=== PATIENT | female | born 1955 | race Caucasian/White ===

== ENCOUNTER → 2018-07-18 01:03 | Outpatient (CLI) | payer BC, SELFPAY ==
--- NOTE | 2018-07-18 10:08 | DI.REPORT_ITS ---
SYMPTOMS/DIAGNOSIS: PHLEBITIS, I80.9 RIGHT LOWER EXTREMITY ULTRASOUND: No priors for comparison. The deep veins of the right lower extremity show normal compression, augmentation and color flow. No evidence of a deep venous thrombus is identified. There is nonocclusive thrombus seen in a superficial vein in the right lower extremity. IMPRESSION: 1. No evidence of a right lower extremity deep venous thrombus. 2. Superficial thrombophlebitis.
== END ==
PROVIDERS: Visit Provider Internal Medicine
DX: I80.01 Phlebitis and thrombophlebitis of superficial vessels of right lower extremity (principal)
CPT/HCPCS: 93971

== ENCOUNTER 2019-04-10 00:59 | Outpatient (CLI) | payer BC, SELFPAY ==
--- NOTE | 2019-04-10 08:30 | ETT_ITS ---
*[facility]* *[facility]* [address] [place] [address] Stress Electrocardiography Dayo protocol Date of study: 04/10/2019 *PATIENT PRESENTATION* Height: 175.3cm (69in) Blood Pressure: Weight: 60.5kg (133lb) BSA: 1.71m^2 Referring physician: Keyshawn Randle Ordering physician: Keyshawn Randle Impressions: - Indeterminate stress test due to inadequate heart rate. - Treadmill not functioning normally. Unable to achieve adequate stress conditions. Rec repeat ETT if clinical suspicion warrants. Summary: 1. Stress ECG conclusions: The stress ECG is non-diagnostic. 2. Stress: The target heart rate was not achieved. Indication: R07.9. History: REASON FOR VISIT: PT REPORTS WHILE TAKING HER REGULAR WALK LAST WEEK SHE EXPERIENCED CHEST TIGHTNESS ASSOCIATED WITH LEG HEAVINESS, NO ASSOCIATED SHORTNESS OF BREATH. SHE STATES SHE ALSO HAS BEEN EXPERIENCING ACID REFLUX FOR 1 MONTH. 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 SHE STATES SHE HAS HAD ANXIETY CHEST PAINS FOR YEARS AND IS UNSURE IF HER CHEST PAIN IS RELATED TO THIS AND HER RECENT STRESS. Risk factors: Cholesterol: 228mg/dl. HDL: 79mg/dl. LDL: 132mg/dl. Triglycerides: 85mg/dl. ALLERGIES: ENVIRONMENTAL. MEDICATIONS: ADVIL PRN. Protocol: Dayo protocol. Baseline ECG: SINUS BRADYCARDIA. HR 59 BPM. Stress protocol: + +---+ + + !Stage !HR !BP (mmHg) !Comments ! + +---+ + + !Baseline supine !59 !122/78 (93) ! ! + +---+ + + !Baseline standing !75 !112/70 (84) ! ! + +---+ + + !Stage I; 1.7mph, !93 !124/70 (88) ! ! !10degrees; 3 min ! ! ! ! + +---+ + + !Stage II; 2.5mph, !105!130/76 (94) ! ! !12degrees; 3 min ! ! ! ! + +---+ + + !Stage III; 3.4mph, !114!140/80 (100)!PT CONTINUED IN MANUAL ! !14degrees; 3 min ! ! !MODE AT STAGE III. ! ! ! ! !12 MINUTES EXERCISE: ! ! ! ! !150/78, HR 118 ! ! ! ! !15 MINUTES EXERCISE: ! ! ! ! !154/82, HR 120 ! ! ! ! !18 MINUTES EXERCISE: ! ! ! ! !162/82, HR 121. ! + +---+ + + * Stress results: Maximal heart rate during stress was 126bpm (79% of maximal predicted heart rate). The maximal predicted heart rate was 159bpm. The target heart rate was not achieved. The rate-pressure product for the peak heart rate and blood pressure was 76039mo Hg/min. Stress ECG: TREADMILL PORTION OF STRESS TEST ENDED IN 18 MINUTES AND 30 SECONDS. TREADMILL REMAINED IN STAGE 3. PT UNABLE TO OBTAINED TARGET HR IN MANUAL MODE AFTER 18 MINUTES & 30 SECONDS OF EXERCISE. NORMAL HEART RATE AND BLOOD PRESSURE RESPONSE TO EXERCISE. MAX HR = 126 % OF TARGET = 79 NO ECTOPY APPROXIMATE METS ACHIEVED = 7.05 NO ANGINA. NO SIGNIFICANT ST SEGMENT CHANGES. TREADMILL PORTION OF STRESS TEST ENDED IN The stress ECG is non-diagnostic. Study data: Azar Queen MD supervised and was readily available during the procedure. This study was interpreted by [facility]. Study status: Routine. Consent: The risks, benefits, and alternatives to the procedure were explained to the patient and informed consent was obtained. Procedure: Initial setup. A baseline ECG was recorded. Surface ECG leads and manual cuff blood pressure measurements were monitored. Heart sounds: Normal. Lung sounds: Normal. Treadmill exercise testing was performed using the Dayo protocol. Study completion: The patient tolerated the procedure well and was discharged from the lab. Discharge: The patient left the laboratory in stable condition. Birthdate: Patient birthdate: 1955. Sex: Gender: female. Study date: Study date: 04/10/2019. Study time: 00:01 AM. Electronically signed by Azar Queen MD 04/10/2019 10:36
== END 2019-04-10 01:19 ==
PROVIDERS: PCP Nurse Practitioner Family; Visit Provider Specialist/Technologist Athletic Trainer
DX: R07.9 Chest pain, unspecified (principal); R94.39 Abnormal result of other cardiovascular function study; T82.598A Other mechanical complication of other cardiac and vascular devices and implants, initial encounter; Y93.A1 Activity, exercise machines primarily for cardiorespiratory conditioning
CPT/HCPCS: 93017

== ENCOUNTER 2019-05-18 14:39 | Outpatient (REF) | payer BC, SELFPAY ==
[2019-05-23 13:39] LABS: Helicobacter pylori Ag, Feces Negative (NEGAT)
== END 2019-05-18 14:59 ==
LOC: NCHCN 14:39
PROVIDERS: PCP Nurse Practitioner Family; Visit Provider Family Medicine
DX: R19.5 Other fecal abnormalities (principal)
CPT/HCPCS: 87338

== ENCOUNTER 2019-09-20 06:06 | Day surgery (SDC) | payer BC, SELFPAY ==
[2019-09-20 06:22] VITALS: BP 122/84; PULSE 71; RESP 17; TEMP 36.3; O2SAT 100
--- NOTE | 2019-09-20 06:30 | W.PM.OP ---
Date of service: 09/20/19 Time of Service: 08:26 Operative Note Operative Note DATE OF PROCEDURE: 09/20/19 PRE-OP DIAGNOSIS: Left inguinal hernia POST-OP DIAGNOSIS: same (Direct and indirect inguinal hernia) PROCEDURE: Left inguinal hernia repair with mesh SURGEON: Marva Gregorio GRAPHICS SOFTWARE ENGINEER: Elyssa Sultana ANESTHESIA: GETA (ASA 2/ Denise Tellez, [place]) ESTIMATED BLOOD LOSS: 5 PATHOLOGY: none sent COMPLICATIONS: None Patient was transported to: PACU Patient's condition: stable Implants: Bard mesh prefix plug- REF [id number] Bard Mesh flat 3x6 cm- REF [id number] Indications: Mrs. Steve is a pleasant 64 year old female who was seen in the office for a left inguinal hernia. She is very active and it has been causing some discomfort. Risks, benefits, complications of the procedure were reviewed with her. Alternatives were discussed. Questions were entertained and answered to her satisfaction. Patient wished to proceed. No guarantees were given or implied. Findings: small indirect and direct hernias Procedure Description: After informed consent was obtained and the LLQ was marked in SDS, the patient was taken to the operating room and placed in a supine position. Monitors and SCDs were applied and a timeout was done. The patient's name, date of , procedure type, procedure site, allergies to medications, preoperative antibiotic, and DVT prophylaxis were all reviewed. Fire risk was assessed. Next anesthesia did a tap block on the left side under ultrasound guidance. Please see their separate dictation. Once anesthesia was done the abdomen was prepped and draped in a sterile surgical fashion. 1% lidocaine was injected into the dermis in the left lower quadrant. An incision was made with a 15 blade in the left lower quadrant. Dissection was done with cautery through the subcutaneous tissues and Sanjay's fascia down to the external oblique fascia. The external ring was identified and the external oblique fascia was opened sharply through the external ring. The cut fascia was grasped with hemostats the round ligament was identified and a Anita drain was placed around it. Next to the round ligament there was a indirect hernia defect. A medium plug was placed into the defect and secured with 2-0 proline. A 3 x 6 piece of mesh was then cut to size and attached to the lacunar ligament using a 2-0 Prolene double armed suture. The mesh was secured laterally and medially with a 2-0 Prolene, with a running suture. The tails of the mesh were wrapped around the round ligament effectively cinching down the internal ring. Once the mesh was secured the tissues were irrigated with some normal saline. No bleeding was identified. The external oblique fascia was re-approximated using 2-0 Vicryl running suture. The dermis was re-approximated with a running 4-0 Vicryl. The skin was cleaned and dried and skin affix was applied. The patient was woken up and taken back to recovery in stable condition. There were no immediate complications. Sponge, instrument and needle counts were correct at the end of the case x2.
--- NOTE | 2019-09-20 06:33 | PDOC.DSDIS_ITS ---
Discharge Plan Disposition Patient Disposition: HOME Condition: Good Discharge Details Reason For Visit: left inguinal hernia Attending Provider: Marva Gregorio Primary Care Provider: Freda Mansfield Home Meds and New Rx's Prescriptions: New acetaminophen [Tylenol] 325 mg capsule 650 mg PO Q6H PRN (Reason: fever or pain) Qty: 30 RF: 0 ibuprofen 600 mg tablet 600 mg PO Q6H PRN (Reason: fever or pain) Qty: 30 RF: 0 Discontinued ibuprofen [Advil] 200 mg Tablet 200 mg PO Q6H PRNRF: 0 Discharge Instructions Instructions: Inguinal Hernia Repair (DC) Additional Instructions: Activity at Home after surgery: 1. Make sure you walk outside at least 4 times per day 2. You should be able to climb a flight of stairs 3. No driving while in pain or taking pain medications 4. No strenuous activity or heavy lifting for 4 weeks 5. No lifting, pulling and pushing > 20 lb x 4 weeks Diet, Nutrition, & wound healin. Avoid alcohol until after you are recovered from your surgery 2. Make sure to eat plenty of lean protein (meat, fish, eggs, cottage c heese, beans) 3. Eat a variety of fruits and vegetables. Eat plenty of high fiber foods to avoid constipation. 4. Drink plenty of liquids to stay hydrated and avoid constipation Pain Medications: 1. Tylenol 650 mg every 6 hours and Ibuprofen 600 mg every 6 hours (You may alternate the medications every 3 hours) 2. If a narcotic has been prescribed take as directed only for breakthrough pain For Constipation: 1. Take Milk of Magnesia or MiraLax as needed for constipation Other: 1. You may shower daily. Do not scrub the incisions 2. Do not soak the incisions for 1 week 3. You may alternate ice and heat as needed for pain and swelling Wound Care: 1. Keep the incisions clean and dry Please call our office if you develop: 1. Fevers >101.5 2. Nausea or Vomiting 3. Worsening pain 4. Redness and thick discharge from the wounds If after hours please call the Hospital at and ask to speak to the on-call surgeon Referrals: Marva Gregorio MD [ [facility] STAFF PHYSICIAN] - 10/06/19 8:30 am Activity:: No lifting >20 lb x 4 weeks Diet:: As Tolerated Discharge Orders Discharge Orders: Discharge Order (Routine); Ordered 09/20/19 Ordered By: Marva Gregorio DS: Diagnosis Discharge Diagnosis (1) S/P inguinal hernia repair using synthetic patch: Status: Acute
[2019-09-20] MEDS: Lactated Ringers 1,000 ML 80 ML IV (07:03)
[2019-09-20] MEDS: Bupivacaine LIPOSOME/PF 133 MG/10 ML VIAL IJ (07:37)
[2019-09-20] MEDS: Lidocaine 1% Multi-Dose 50 ML VIAL (08:15)
[2019-09-20 08:38] VITALS: BP 93/46; PULSE 62; RESP 18; TEMP 36.7; O2SAT 99
[2019-09-20 08:43] VITALS: BP 89/45; PULSE 60; RESP 19; TEMP 36.7; O2SAT 98
[2019-09-20 08:48] VITALS: BP 94/53; PULSE 63; RESP 16; TEMP 36.7; O2SAT 100
[2019-09-20 09:03] VITALS: BP 114/69; PULSE 64; RESP 15; TEMP 36.7; O2SAT 100
[2019-09-20 09:40] VITALS: BP 112/70; PULSE 61; RESP 16; TEMP 36.2; O2SAT 100
== END 2019-09-20 10:20 | disposition home or self-care (01) ==
PROVIDERS: PCP Nurse Practitioner Family; Visit Provider Surgery
PROC: (CPT 49505; principal; 2019-09-20 07:30)
DX: K40.90 Unilateral inguinal hernia, without obstruction or gangrene, not specified as recurrent (principal); G89.18 Other acute postprocedural pain; K21.9 Gastro-esophageal reflux disease without esophagitis
CPT/HCPCS: 49505; 76942; C1781; J1885; J2405; J3010

== ENCOUNTER 2020-09-24 15:49 | Outpatient (REF) | payer BC, SELFPAY | END 2020-09-24 16:09 | LOC: NCHCN 15:49 | PROVIDERS: PCP Nurse Practitioner Family; Visit Provider Nurse Practitioner Family | DX: Z20.828 Contact with and (suspected) exposure to other viral communicable diseases (principal) | CPT/HCPCS: U0003 ==

== ENCOUNTER 2021-07-24 16:25 | Outpatient (REF) | payer BC, SELFPAY | END 2021-07-24 16:26 | disposition home or self-care (01) | LOC: LBN 16:25 | PROVIDERS: PCP Nurse Practitioner Family; Visit Provider Nurse Practitioner Family | DX: R35.0 Frequency of micturition (principal) | CPT/HCPCS: 87077; 87086; 87186 ==

== ENCOUNTER 2021-08-07 17:41 | Outpatient (REF) | payer BC, SELFPAY ==
[2021-08-07 21:12] LABS: Bilirubin Negative (Negative); Blood Moderate (Negative); Clarity Sl Cloudy (Clear); Glucose Negative (Negative); Ketones Negative (Negative); Leukocyte Esterase Small (Negative); Nitrite Positive (Negative); Urobilinogen 0.2 EU/dL (Up TO 0.2); pH 5.5 (5-8)
[2021-08-07 21:29] LABS: Bacteria Many HPF (Negative); C & S Indicated? C&S Done As Ordered; Casts Negative LPF (Negative); Crystals Negative HPF (Negative); Epithelial Cells Rare HPF (Negative); Mucus Negative (Negative)
== END 2021-08-07 17:42 | disposition home or self-care (01) ==
LOC: LBN 17:41
PROVIDERS: PCP Nurse Practitioner Family; Visit Provider Physician Assistant Medical
DX: N39.0 Urinary tract infection, site not specified (principal)
CPT/HCPCS: 87077; 81003; 81015; 87086; 87186

== ENCOUNTER 2021-08-22 12:04 | Outpatient (REF) | payer BC, SELFPAY | END 2021-08-22 12:05 | disposition home or self-care (01) | LOC: NCHCN 12:04 | PROVIDERS: PCP Nurse Practitioner Family; Visit Provider Nurse Practitioner Family | DX: N39.0 Urinary tract infection, site not specified (principal) | CPT/HCPCS: 87077; 87086; 87186 ==

== ENCOUNTER 2021-08-26 16:38 | Outpatient (REF) | payer BC, SELFPAY ==
[2021-08-26 15:00] LABS: Anion Gap 5.7 mmol/L (3-11); BUN 17 mg/dL (7-18); CO2 30.3 mmol/L (21.0-32.0); Calcium 9.2 mg/dL (8.5-10.1); Chloride 102 mmol/L (98-107); Estimated GFR 55.82 (mL/min/1.73m2); Glucose 98 mg/dL (74-106); Potassium 5.3 mmol/L (3.5-5.1); Sodium 138 mmol/L (136-145)
== END 2021-08-26 16:39 | disposition home or self-care (01) ==
LOC: NCHCN 16:38
PROVIDERS: PCP Nurse Practitioner Family; Visit Provider Nurse Practitioner Family
DX: N39.0 Urinary tract infection, site not specified (principal); R51.9 Headache, unspecified; Z00.00 Encounter for general adult medical examination without abnormal findings
CPT/HCPCS: 80048

== ENCOUNTER 2022-07-21 19:41 | Outpatient (REF) | payer MEDICARE, SELFPAY ==
[2022-07-22 09:04] LABS: HBs Antibody, Quant <3.1 mIU/mL (See Note); Hepatitis B Surface Ab Negative (See Note)
[2022-07-22 11:39] LABS: Measles IgG Antibody Positive (See Note); Mumps Antibody IgG Positive (See Note)
[2022-07-22 11:41] LABS: Rubella IgG Ab (UVM) Positive (See Note)
== END 2022-07-21 19:42 | disposition home or self-care (01) ==
LOC: NCHCN 19:41
PROVIDERS: PCP Nurse Practitioner Family; Visit Provider Nurse Practitioner Family
DX: Z71.89 Other specified counseling (principal)
CPT/HCPCS: 86706; 86735; 86762; 86765

== ENCOUNTER 2022-09-18 15:11 | Outpatient (REF) | payer MEDICARE, SELFPAY ==
[2022-09-18 15:43] LABS: Abs Immature Grans 0.16 10^3/uL (0.0-0.06); Absolute Basophil Count 0.04 10^3/uL (0.0-0.2); Absolute Eosinophil Count 0.05 10^3/uL (0.0-0.7); Absolute Lymphocyte Count 0.86 10^3/uL (1.2-3.4); Absolute Monocyte Count 0.47 10^3/uL (0.1-0.8); Absolute Neutrophil Count 5.59 10^3/uL (1.2-6.7); Basophils % 0.6; Eosinophils % 0.7; HCT 36.3 % (36.0-46.0); HGB 11.8 g/dL (11.2-15.7); Immature Grans % 2.2; MCH 29.8 pg (27.0-33.0); MCHC 32.5 % (32.0-36.0); MCV 92 fL (80-95); MPV 10.7 fL (8.0-11.0); Monocytes % 6.6; Neutrophils % 77.9; Platelet Count 394 10^3/uL (130-400); RBC 3.96 10^6/uL (3.93-5.22); RDW 12.5 % (11.7-14.6); RDW-SD 41.6 fL; WBC 7.17 10^3/uL (4.4-10.8)
[2022-09-18 16:48] LABS: ALT 29 U/L (14-59); AST 18 U/L (15-37); Albumin 3.2 g/dL (3.4-5.0); Alkaline Phosphatase 94 U/L (46-116); Anion Gap 5.2 mmol/L (3-11); BUN 13 mg/dL (7-18); Bilirubin, Total 0.5 mg/dL (0.2-1.0); CO2 28.8 mmol/L (21.0-32.0); CREATININE 0.8 mg/dL (0.55-1.02); Chloride 98 mmol/L (98-107); Estimated GFR 81.72 (mL/min/1.73m2); Glucose 102 mg/dL (74-106); Sodium 132 mmol/L (136-145); Total Protein 6.8 g/dL (6.4-8.2)
== END 2022-09-18 15:12 | disposition home or self-care (01) ==
LOC: LBN 15:11
PROVIDERS: PCP Nurse Practitioner Family; Visit Provider Physician Assistant Medical
DX: R19.7 Diarrhea, unspecified (principal)
CPT/HCPCS: 80053; 85025

== ENCOUNTER 2022-09-19 10:07 | Outpatient (REF) | payer MEDICARE, SELFPAY ==
[2022-09-20 22:26] LABS: Salmonella PCR Negative (Negative); Shiga Toxin PCR Negative (Negative); Shigella/Enteroinvasive Ecoli Negative (Negative)
[2022-09-21 10:30] LABS: Campylobacter PCR Positive (Negative)
== END 2022-09-19 10:08 | disposition home or self-care (01) ==
LOC: LBN 10:07
PROVIDERS: PCP Nurse Practitioner Family; Visit Provider Physician Assistant Medical
DX: R19.7 Diarrhea, unspecified (principal)
CPT/HCPCS: 87329; 87493; 87505; 87177

== ENCOUNTER 2022-12-23 13:48 | Outpatient (REF) | payer MEDICARE, SELFPAY ==
[2022-12-23 14:44] LABS: Calculated LDL 146 mg/dL (<100); Cholesterol 248 mg/dL (<200); HDL Cholesterol 90 mg/dL (40-60); TSH (W/Ref FT4) 1.64 uIU/mL (0.36-3.74); Triglyceride 63 mg/dL (<150)
[2022-12-24 08:48] LABS: HBs Antibody, Quant <3.1 mIU/mL (See Note); Hepatitis B Surface Ab Negative (See Note)
== END 2022-12-23 13:49 | disposition home or self-care (01) ==
LOC: NCHCN 13:48
PROVIDERS: PCP Nurse Practitioner Family; Visit Provider Family Medicine
DX: L65.9 Nonscarring hair loss, unspecified (principal); K40.90 Unilateral inguinal hernia, without obstruction or gangrene, not specified as recurrent; Z12.10 Encounter for screening for malignant neoplasm of intestinal tract, unspecified; Z71.89 Other specified counseling
CPT/HCPCS: 80061; 86706; 84443